=== PATIENT | female | born 1975 | race Hispanic/Latino ===

== ENCOUNTER → 2023-11-11 | Emergency (ER) | payer OTHER ==
[~2023-11-11] MED LIST: ADVIL200 MG PO; FISH OIL 1,0001 EAC5 PO; MELOXICAM15 MG PO; PRAVASTATIN SOD40 MG PO; VITAMIN E100 UNIT PO
== END ==
LOC: ED 07:29
DX: S56.911A Strain of unspecified muscles, fascia and tendons at forearm level, right arm, initial encounter (principal); X50.0XXA Overexertion from strenuous movement or load, initial encounter
CPT/HCPCS: 99283